=== PATIENT | male | born 1935 | race Caucasian/White ===

== ENCOUNTER 2016-05-31 10:41 | Emergency (ER) | payer MEDICARE ==
--- NOTE | 2016-05-31 11:07 | Emergency Department Record ---
History of Present Illness - General Chief Complaint: Difficulty Breathing Stated Complaint: KARY/COUGH Time Seen by Provider: 05/31/16 11:04 Source: Patient Mode of Arrival: Ambulatory Limitations: No limitations - History of Present Illness Initial Comments: 81 yo male presents to ED with a CC of cough and runny nose symptoms for the past 4 days. Patient denies fevers, chills, or wheezing symptoms, denies nausea , vomiting or abdominal pain symptoms. Patient does report body aches. Patient denies health problems at his baseline other than HTN. MD Complaint: Cough Onset/Timin -: Days(s) Severity: Mild Severity scale (1-10): 3 Quality: Aching Consistency: Intermittent Improves With: Nothing Worsens With: Nothing Associated Symptoms: Cough, Sputum production, Other Treatments Prior to Arrival: None - Related Data Home Oxygen Therapy: No Home Medications Medication Instructions Recorded Confirmed Last Taken Alendronate Sodium [Fosamax] 70 mg PO WEEKLY 04/01/15 05/31/16 Unknown Allopurinol [Zyloprim] 100 mg PO BID 04/01/15 05/31/16 Unknown Aspirin [Adult Low Dose Aspirin EC] 81 mg PO DAILY 04/01/15 05/31/16 Unknown Calcium Carbonate/Vitamin D3 1 each PO DAILY 04/01/15 05/31/16 Unknown [Calcium 500 + D Tablet] Cholecalciferol (Vitamin D3) 2,000 unit PO DAILY 04/01/15 05/31/16 Unknown [Vitamin D3] Donepezil HCl 10 mg PO QHS 04/01/15 05/31/16 Unknown Losartin Pot 1 tab PO DAILY 04/01/15 05/31/16 Unknown Lovastatin 40 mg PO DAILY 04/01/15 05/31/16 Unknown Vitabasic 1 tab PO DAILY 04/01/15 05/31/16 Unknown Metoprolol Tartrate 25 mg PO DAILY 05/31/16 05/31/16 Unknown Previous Rx's Medication Instructions Recorded Azithromycin [Zithromax] 250 mg PO DAILY #6 tab 05/31/16 Promethazine HCl/Codeine 5 ml PO Q6H PRN #118 ml 05/31/16 [Phenergan W/Codeine] Allergies Allergy/AdvReac Type Severity Reaction Status Date / Time No Known Drug Allergies Allergy Verified 05/31/16 10:52 Travel Screening - Travel/Exposure Within Last 30 Days Have you traveled within the last 30 days?: No Review of Systems Constitutional: Denies: Chills, Fever, Malaise, Night sweats Eyes: Denies: Eye discharge, Eye pain ENT: Reports: Congestion. Denies: Ear pain, Epistaxis Respiratory: Reports: Cough. Denies: Dyspnea, Wheezes Cardiovascular: Denies: Chest pain, Dyspnea on exertion Endocrine: Denies: Fatigue, Heat or cold intolerance Gastrointestinal: Denies: Abdominal pain, Nausea, Vomiting Musculoskeletal: Reports: Myalgia. Denies: Arthralgia, Back pain, Gout, Joint swelling Skin: Denies: Bruising, Change in color Neurological: Denies: Abnormal gait, Confusion, Headache, Seizure Psychiatric: Denies: Anxiety Hematological/Lymphatic: Denies: Anemia, Blood Clots Past Medical History - SOCIAL HISTORY Smoking Status: Never smoker Alcohol Use: None Drug Use: None - RESPIRATORY Hx Respiratory Disorders: Yes Hx Pneumonia: Yes - CARDIOVASCULAR Hx Cardio Disorders: Yes Hx Chest Pain: Yes Hx Hypertension: Yes - NEURO Hx Neuro Disorders: No - GI Hx GI Disorders: No - Hx Genitourinary Disorders: Yes Hx Kidney Stones: Yes - ENDOCRINE Hx Endocrine Disorders: No - MUSCULOSKELETAL Hx Arthritis: Yes - PSYCH Hx Psych Problems: No - HEMATOLOGY/ONCOLOGY Hx Hematology/Oncology Disorders: No Family Medical History Any Significant Family History?: Yes Hx Cancer: Brother/Sister Hx Heart Disease: Mother Physical Exam - General General Appearance: Alert, Oriented x3, Cooperative, No acute distress Limitations: No limitations - Head Head exam: Atraumatic, Normocephalic, Normal inspection Head exam detail: negative: Abrasion, Contusion, Anton's sign, General tenderness, Hematoma, Laceration - Eye Eye exam: Normal appearance. negative: Conjunctival injection, Periorbital swelling, Periorbital tenderness, Scleral icterus - ENT Ear exam: negative: Auricular hematoma, Auricular trauma Nasal Exam: negative: Active bleeding, Discharge, Dried blood, Foreign body Mouth exam: negative: Drooling, Laceration, Muffled voice, Tongue elevation - Neck Neck exam: Normal inspection. negative: Meningismus, Tenderness - Respiratory Respiratory exam: Normal lung sounds bilaterally. negative: Respiratory distress, Rhonchi, Stridor, Wheezes - Cardiovascular Cardiovascular Exam: Regular rate, Normal rhythm, Normal heart sounds - GI/Abdominal GI/Abdominal exam: Soft. negative: Rebound, Rigid, Tenderness - Rectal Rectal exam: Deferred - exam: Deferred - Extremities Extremities exam: Normal inspection. negative: Pedal edema, Tenderness - Back Back exam: Denies: CVA tenderness (R), CVA tenderness (L) - Neurological Neurological exam: Alert, Normal gait, Oriented X3 - Psychiatric Psychiatric exam: Normal affect, Normal mood - Skin Skin exam: Normal color. negative: Abrasion Type of lesion: negative: abrasion Course Vital Signs 05/31/16 10:48 Temperature 97.4 F L Pulse Rate 87 Respiratory 20 Rate Blood Pressure 147/84 Pulse Ox 96 - Reevaluation(s) Reevaluation #1: 05/31/16 11:38 CXR: No acute process. Reevaluation #2: 05/31/16 11:42 Influenza: Negative Patient was updated on all results, will treat with Phenergan with Codeine for cough symptoms as well as Zithromax with instructions to return for any worsening of his symptoms. Disposition Disposition: Discharge Clinical Impression: Acute bronchitis Qualifiers: Bronchitis organism: unspecified organism Qualified Code(s): J20.9 - Acute bronchitis, unspecified Disposition: Home, Self-Care Condition: (2) Stable Instructions: Acute Bronchitis (ED) Additional Instructions: Return to ED if your symptoms worsen or if you have any concerns. Zithromax and Phenergan with Codeine as directed. Follow-up with your family doctor in 3-5 days. Prescriptions: Promethazine HCl/Codeine [Phenergan W/Codeine] 5 ml PO Q6H PRN #118 ml PRN Reason: Cough Azithromycin [Zithromax] 250 mg PO DAILY #6 tab Forms: Patient Portal Access Time of Disposition: 11:41
[2016-05-31 11:41] LABS: INFLUENZA A NEGATIVE (NEGATIVE); INFLUENZA B NEGATIVE (NEGATIVE)
--- NOTE | 2016-06-03 08:55 | RADIOLOGY REPORT ---
EXAM: CHEST, TWO VIEWS HISTORY: PATIENT HAS COUGH TIMES ONE WEEK. PATIENT HAS ACUTE CHEST PAIN. TECHNIQUE: Two views of the chest were provided along with the comparison study dated 04/01/15. FINDINGS: The cardiomediastinal silhouette is within normal limits for size and contour. Tortuosity of the thoracic aorta is noted. Degenerative changes of the thoracolumbar spine are unchanged with respect to prior examination. Postoperative changes of the right shoulder are again noted. The dania appear unremarkable. There is no radiographic evidence of a focal infiltrate, pleural effusion, or pneumothorax. Blunting of the left posterior costophrenic angle may be related to mild pleural thickening. This finding is unchanged with respect to the prior examination. IMPRESSION: NO RADIOGRAPHIC EVIDENCE OF AN ACUTE INTRATHORACIC PROCESS. STABLE RADIOGRAPHIC APPEARANCE OF THE CHEST WITH RESPECT TO THE PRIOR EXAMINATION. JOB NUMBER: [id number] MTDD
== END 2016-05-31 11:52 | disposition home or self-care (01) ==
LOC: ER 10:41
DX: J20.9 Acute bronchitis, unspecified (principal)
CPT/HCPCS: 71020; 87400; 99283